=== PATIENT | female | born 1950 | race Caucasian/White ===

== ENCOUNTER 2018-08-16 10:02 | Inpatient (IN) | payer MEDICARE, OTHER ==
[~2018-08-16] VITALS: Ht 165.1 cm; Wt 115.7 kg
[~2018-08-16 10:02] MED LIST: ALEVE220 M1 PO; ASPIR 8181 MG PO; PRILOSEC10 MG PO
[2018-08-16] MEDS ORDERED: SODIUM CHLORIDE 0.9% 1000ML 1,000 ML IV STA (10:23)
[2018-08-16 10:43] LABS: BASOPHILS % 0.3 % (0.0-1.0); EOSINOPHILS # (AUTO) 0.2 (0.0-0.4); EOSINOPHILS % 2.7 % (0.0-6.0); HEMATOCRIT 47.6 % (34.2-44.1); LYMPHOCYTES # (AUTO) 0.5 (1.0-3.2); LYMPHOCYTES % 5.9 % (18.0-39.1); MEAN CORPUSCULAR HEMOGLOBIN 30.5 pg (28-32); MEAN CORPUSCULAR HGB CONC 31.5 g/dL (31-35); MEAN CORPUSCULAR VOLUME 96.7 fL (81-99); MONOCYTES # (AUTO) 0.4 (0.2-0.8); MONOCYTES % 4.7 % (4.4-11.3); NEUTROPHILS # (AUTO) 7.5 (2.1-6.9); NEUTROPHILS % 85.9 % (38.7-80.0); PLATELET COUNT 210 x10e3/uL (140-360); RED BLOOD COUNT 4.92 x10e6/uL (3.6-5.1); RED CELL DISTRIBUTION WIDTH 14.6 % (11.7-14.4)
[2018-08-16] MEDS ORDERED: ACETAMINOPHEN 1000 MG/100 ML 100 ML IV ONE (10:51)
[2018-08-16] MEDS ORDERED: ACETAMINOPHEN 1000 MG/100 ML IV STA (11:00)
--- NOTE | 2018-08-16 11:01 | NUR ---
Patient placed on BiPap at this time by RT.
[2018-08-16 11:05] LABS: INR 0.86; PARTIAL THROMBOPLASTIN TIME 30.3 seconds (23.8-35.5); PROTHROMBIN TIME 12.5 seconds (11.9-14.5)
[2018-08-16 11:12] LABS: ALANINE AMINOTRANSFERASE 12 IU/L (0-55); ALBUMIN 3.4 g/dL (3.5-5.0); ALBUMIN/GLOBULIN RATIO 0.8 (0.8-2.0); ALKALINE PHOSPHATASE 88 IU/L (40-150); ANION GAP 14.9 mmol/L (8-16); BLOOD UREA NITROGEN 12 mg/dL (7-26); BUN/CREATININE RATIO 14 (6-25); CALCIUM 9.7 mg/dL (8.4-10.2); CARBON DIOXIDE 27 mmol/L (22-29); CHLORIDE 103 mmol/L (98-107); CREATINE KINASE 95 IU/L (29-168); CREATININE, SERUM 0.87 mg/dL (0.57-1.11); EST GLOMERULAR FILTRATION RATE > 60 ML/MIN (60-); GLUCOSE 114 mg/dL (74-118); POTASSIUM 3.9 mmol/L (3.5-5.1); SODIUM 141 mmol/L (136-145)
[2018-08-16 11:18] LABS: BILIRUBIN,URINE NEGATIVE (NEGATIVE); CLARITY,URINE SL CLOUDY (CLEAR); COLOR,URINE YELLOW (YELLOW); KETONES,URINE NEGATIVE (NEGATIVE); LEUKOCYTE ESTERASE ,URINE NEGATIVE (NEGATIVE); NITRITE,URINE NEGATIVE (NEGATIVE); PROTEIN,URINE DIPSTICK NEGATIVE (NEGATIVE); URINE UROBILINOGEN 1 mg/dL (0.2 - 1)
--- NOTE | 2018-08-16 11:40 | Diagnostic Imaging Report ---
Examination: Single AP view of the chest. COMPARISON: None. INDICATION: Shortness of breath, sepsis DISCUSSION: The patient is rotated to the right. The lungs are well-inflated. No focal consolidation or sizable effusion. No pneumothorax. Mild enlargement of the cardiac silhouette even when accounting for AP technique, with perihilar prominence of the pulmonary interstitium. No acute osseous abnormality. IMPRESSION: Mild enlargement of the cardiac silhouette with interstitial edema. Signed by: Dr. Rubén Gandara M.D. on 08/16/2018 11:37 AM
[2018-08-16] MEDS ORDERED: ALBUTEROL/IPRATROPIUM 3 ML NEB NEB ONE (12:00)
[2018-08-16] MEDS ORDERED: METHYLPREDNISOLONE SOD SUCC 125 MG/2ML VIAL IV ONE (12:00)
[2018-08-16] MEDS ORDERED: KETOROLAC TROMETHAMINE 30 MG/ML VIAL IV STA (12:19)
[2018-08-16 12:29] LABS: BACTERIA,URINE FEW /HPF; EPITHELIAL CELLS,URINE FEW /LPF; RBC,URINE 0-5 /HPF (0-5)
[2018-08-16] MEDS ORDERED: CEFTRIAXONE SOD 1 GM VIAL IV SCH (12:30)
[2018-08-16] MEDS ORDERED: CEFTRIAXONE SOD 1 GM/NS 50 ML 50 ML IV ONE (12:56)
[2018-08-16] MEDS: CEFTRIAXONE SOD 1 GM/NS 50 ML 50 ML IV SCH (13:01)
--- NOTE | 2018-08-16 13:01 | NUR ---
Patient only received 2L of IV fluids per Dr. Bocanegra.
[2018-08-16] MEDS ORDERED: SODIUM CHLORIDE 0.9% 1000ML 1,000 ML IV SCH (14:33)
[2018-08-16] MEDS: ALBUTEROL SULF 0.083% NEB SOLN 3 ML NEB NEB SCH ×3 (14:45→23:55)
[2018-08-16] MEDS ORDERED: AZITHROMYCIN 500MG/SOD CHL 0.9% 250ML BAG IV SCH (14:45)
--- OUTSIDE RECORDS SUMMARY | 2018-08-16 15:09 | XMS REPORT ---
Author Author [facility] Address Unknown Phone Unavailable Care Team Providers Care Driving Instructor Name Role Phone Leatha CANO Unavailable Unavailable Problems This patient has no known problems. Allergies, Adverse Reactions, Alerts This patient has no known allergies or adverse reactions. Medications This patient has no known medications. Results Test Description Test Time Test Comments Text Results Atomic Results Result Comments CHEST SINGLE (PORTABLE) 2018-08-16 11:36:00 [place] [id number] Patient Name: CONSTANTINO TRIPP MR #: [id number] : 1950 Age/Sex: 68/F Req #: [id number] Adm Physician: Ordered by: JANES CANO MD Report #: [id number] Location: ER Room/Bed: Procedure: [id number] DX/CHEST SINGLE (PORTABLE) Exam Date: Exam Time: REPORT STATUS: Signed Examination: Single AP view of the chest. COMPARISON: Non e. INDICATION: Shortness of breath, sepsis DISCUSSION: The patient is rotated to the right. The lungs are well-inflated. No focal consolidation or sizable effusion. No pneumothorax. Mild enlargement of the cardiac silhouette even when accounting for AP technique, with perihilar prominence of the pulmonary interstitium. No acute osseous abnormality. IMPRESSION: Mild enlargement of the cardiac silhouette with interstitial edema. Signed by: Dr. Stephanie Gandara M.D. on 08/16/2018 11:37 AM Dictated By: STEPHANIE GANDARA MD 36 Transcribed By: JOHNNA on 08/16/181136 COPY TO: JANES CANO MD
[2018-08-16] MEDS ORDERED: IOPAMIDOL 370 MG/ML 200 ML INFUS..BTL INJ ONE (15:34)
[2018-08-16] MEDS ORDERED: SODIUM CHLORIDE 0.9% 50ML 50 ML ONE (15:34)
[2018-08-16] MEDS: AZITHROMYCIN 500MG/NS 250 ML 250 ML IV SCH (15:48)
--- NOTE | 2018-08-16 15:51 | NUR ---
Patient placed back on Bipap at this time due to shortness of breath. Will continue to closely monitor patient.
--- NOTE | 2018-08-16 15:54 | Diagnostic Imaging Report ---
EXAMINATION: CT of the chest with contrast, PE protocol. TECHNIQUE: Spiral CT images of the chest were performed from the lung apices through the level of the adrenal glands after the IV administration of 100 cc of Isovue-370. Thin section reconstructions were obtained with special concentration on the pulmonary arteries. COMPARISON: Chest radiograph same day. CLINICAL HISTORY:Shortness of breath DISCUSSION: Vasculature: The main pulmonary artery, right and left pulmonary arteries, and their visualized lobar and segmental branches are patent, without filling defect. The pulmonary outflow tract is of normal caliber. Evaluation of the lower lobe segmental pulmonary arteries is slightly limited secondary to respiratory motion artifact. There is no ectasia or aneurysmal dilatation of the thoracic aorta. Hoh coronary artery calcifications. Great vessel origins are normal in caliber and configuration. Lungs: Lower lobe predominant groundglass opacities, juxtapleural Elizabeth B lines, and smooth interlobular septal thickening. More confluent consolidations in the lingula and right lower lobe. Airways: Trachea, mainstem bronchi, and central lobar bronchi are patent Pleura: No pleural effusion or pneumothorax. Heart and mediastinum: Mediastinal and bilateral hilar lymphadenopathy, with the largest mediastinal lymph node at the right lower paratracheal station, measuring 1.6 cm short axis. No axillary lymphadenopathy. Abdomen: Visualized segments of the liver, spleen, adrenals, and pancreas are unremarkable. Calcified splenic granuloma. Bones and soft tissues: No osseous destructive lesions. No focal soft tissue abnormalities. IMPRESSION: No pulmonary embolus to the level of the segmental branch pulmonary arteries. Findings suggest multifocal pneumonia predominantly involving the lingula and right lower lobe, with background changes of interstitial pulmonary edema. Hilar and mediastinal lymphadenopathy is presumably reactive. Atherosclerotic vascular disease. Signed by: Dr. Ruébn Gandara M.D. on 08/16/2018 3:51 PM
[2018-08-16] MEDS: NICOTINE 21 MG/EA PATCH TOP SCH (16:30)
--- NOTE | 2018-08-16 16:38 | NUR ---
Patient breathing rapidly on BiPap and states she does not want to have ABG done. MD notified.
[2018-08-16] MEDS ORDERED: FUROSEMIDE INJ 10 MG/ML 2 ML VIAL IV ONE (16:45)
--- NOTE | 2018-08-16 16:54 | NUR ---
Patient agreed to have ABG performed at this time. RT notified.
[2018-08-16 17:20] LABS: ABG HCO3 26 mmol/L (23-28); ABG PCO2 49 mmHg (41-51); ABG PH 7.33 (7.31-7.41); ABG PO2 83 mmHg (80-105)
[2018-08-16] MEDS: IBUPROFEN 400 MG TAB PO PRN (18:34)
--- NOTE | 2018-08-16 18:36 | NUR ---
Dr. Weston paged at this time. Awaiting call back.
--- NOTE | 2018-08-16 18:41 | History and Physical ---
HISTORY OF PRESENT ILLNESS: A 68-year-old female with past medical history positive for osteoarthritis. According to the patient, she is a heavy smoker also. She came to the hospital complaining of very acute shortness of breath, cough, phlegm and fever. She was found to have bilateral lower pneumonia and acute congestive heart failure and COPD exacerbation . REVIEW OF SYSTEMS: CARDIOVASCULAR: No chest pain, no palpitation. RESPIRATORY: She did complain of shortness of breath and cough and fever. GASTROINTESTINAL: No nausea, no vomiting, no diarrhea. GENITOURINARY: No frequency, no dysuria. ALLERGIES: SHE IS ALLERGIC TO CODEINE. SOCIAL HISTORY: She still smokes. She is a heavy smoker. She does not drink alcohol. PAST MEDICAL HISTORY: She claims that she only has osteoarthritis. PHYSICAL EXAMINATION: HEART: Shows regular rhythm. Normal S1 and S2 sounds. LUNGS: Show decreased breath sounds bilaterally. ABDOMEN: Soft. EXTREMITIES: Show no evidence of cyanosis, edema or trauma. Chest CT showed bilateral pneumonia and also congestive heart failure. On the BMP: Sodium 141, potassium 3.9, chloride 103, CO2 27, BUN 12, creatinine 0.7, glucose 114. On the CBC: White blood count 8.67, hemoglobin 15.0, hematocrit 47.6, platelet count 210,000. PT 12.5, INR 0.86, PTT 30.3. AST 18, ALT 12, total bilirubin 0.5, alkaline phosphatase 88. FINAL IMPRESSION: 1. Multilobar pneumonia. 2. Acute congestive heart failure. 3. Chronic obstructive pulmonary disease exacerbation. 4. Acute hypoxemic respiratory failure, which is resolving with breathing treatments and oxygen. PLAN OF TREATMENT: Continue albuterol q.4 hours, Atrovent q.6 hours. Ceftriaxone 1 gram IV once a day. Zithromax 250 mg IV once a day. IV fluids have been discontinued because of the congestive heart failure. We started the patient on Lasix 40 mg IV daily. Solu-Medrol 40 mg IV q.8 hours. Potassium chloride 20 mEq daily. We are going to get the following consults: Dr. Fowler for pulmonary and Dr. Alex for cardiology. An echocardiogram has been ordered. Actually, the primary care is Dr. Lopez Ross; so, we are going to switch the consult to him for pulmonary. Time spent around 45 minutes. Discussed with the family and the ER physician. Job#: [id number] EV
[2018-08-16] MEDS ORDERED: NAPROXEN250 MG PO (18:45)
[2018-08-16] MEDS: IPRATROPIUM BROMIDE 0.02% 2.5 ML NEB NEB SCH ×2 (19:00→23:55)
--- NOTE | 2018-08-16 19:00 | NUR ---
Walking rounds with BANDAR Ibrahim. Patient in no distress at this time.
[2018-08-16 19:13] LABS: CREATINE KINASE MB 3.1 ng/mL (0-5.0)
--- NOTE | 2018-08-16 21:45 | NUR ---
PATIENT CAME FROM ER AWAKE ALERT ORIENTED, ON O2 4 LT NASAL CANULA, SHORTNESS OF BREATHS WITH EXERTION. NO SKIN BREAKDOWN NOTED, PATIENT ABLE TO STAND UP AND SITTING DOWN WITH HELP. CHANGED GOWN AND SITUATED PATIENT IN BED. WILL CONTINUE TO MONITOR.
[2018-08-16 22:55] VITALS: BP 130/62
[2018-08-16] MEDS: METHYLPREDNISOLONE SOD SUCC 40 MG/ML VIAL IV SCH (22:55)
--- NOTE | 2018-08-16 23:31 | NUR ---
CALLED AND SPOKE WITH DR YEUNG, PER PATIENT SHE HAS NOT BEEN SLEEPING SINCE WEDNESDAY, SHE ASKED FOR SOMETHING TO SLEEP. THE MD GAVE AND ORDER AND ITS CARRIED OUT.
[2018-08-16] MEDS: ZOLPIDEM TARTRATE 5 MG TAB PO PRN (23:49)
[2018-08-17] VITALS (8 sets, daily range): BP systolic 115–147; BP diastolic 58–82
--- NOTE | 2018-08-17 00:17 | NUR ---
PATIENT ONLY WANTED TO TAKE 5 MG AMBIEN, (PRESCRIBED 10 MG, 2 PILLS). WASTED 5 MG AMBIEN WITNESSED BY BEKAH ROE RN. PATIENT IS SLEEPING WITH BIPAP NOW, WILL CONTINUE TO MONITOR.
--- NOTE | 2018-08-17 01:52 | NUR ---
BLOOD DROWN AND SENT TO LAB FOR CARDIAC MARKER.
--- NOTE | 2018-08-17 02:09 | NUR ---
CHECKED PATIENT IS IN BED RESTING, CLOSED EYES, BIPAP IS ON, NO DISTRESS NOTED. BED ALARM IS ON, WILL CONTINUE TO MONITOR.
[2018-08-17 02:31] LABS: CREATINE KINASE MB 3.2 ng/mL (0-5.0)
[2018-08-17] MEDS: ALBUTEROL SULF 0.083% NEB SOLN 3 ML NEB NEB SCH ×6 (03:45→22:30)
--- NOTE | 2018-08-17 05:25 | NUR ---
CALLED AND SPOKE WITH DR HERNANDEZ, MADE HIM AWARE THAT PATIENT IS CONSULTED TO HIM.
--- NOTE | 2018-08-17 05:36 | Diagnostic Imaging Report ---
CHEST SINGLE (PORTABLE), 08/17/2018 5:00 AM Technique: CHEST SINGLE (PORTABLE) Comparison: 08/16/2018 Clinical history: Pneumonia Findings: See Impression Impression: Severely limited by portable technique and soft tissue attenuation. 1. Stable enlarged cardiomediastinal silhouette. 2. Patchy bilateral opacities in keeping with reported pneumonia. Signed by: Dr Lacy Stephens MD on 08/17/2018 5:33 AM
[2018-08-17] MEDS: METHYLPREDNISOLONE SOD SUCC 40 MG/ML VIAL IV SCH ×3 (05:45→21:50)
[2018-08-17] MEDS: PANTOPRAZOLE SOD 40 MG TABEC PO SCH (07:30)
[2018-08-17] MEDS: IPRATROPIUM BROMIDE 0.02% 2.5 ML NEB NEB SCH ×3 (07:50→19:53)
[2018-08-17 08:39] LABS: ANION GAP 14.7 mmol/L (8-16); BLOOD UREA NITROGEN 16 mg/dL (7-26); BUN/CREATININE RATIO 17 (6-25); CARBON DIOXIDE 28 mmol/L (22-29); CHLORIDE 102 mmol/L (98-107); CREATININE, SERUM 0.92 mg/dL (0.57-1.11); EST GLOMERULAR FILTRATION RATE > 60 ML/MIN (60-); GLUCOSE 130 mg/dL (74-118); POTASSIUM 4.7 mmol/L (3.5-5.1); SODIUM 140 mmol/L (136-145)
[2018-08-17 08:59] LABS: CREATINE KINASE MB 2.9 ng/mL (0-5.0)
[2018-08-17] MEDS ORDERED: OMEPRAZOLE 10 MG PO SCH (09:00)
[2018-08-17] MEDS: POTASSIUM CHLORIDE 20 MEQ TAB CR PO SCH (09:20)
[2018-08-17] MEDS: FUROSEMIDE INJ 10 MG/ML 4 ML VIAL IV SCH (09:20)
[2018-08-17] MEDS: ASPIRIN 81 MG CHEW TAB PO SCH (09:20)
--- NOTE | 2018-08-17 09:51 | Consultation ---
DATE OF CONSULTATION: August 17, 2018 PULMONARY CRITICAL CARE CONSULTATION HISTORY OF PRESENT ILLNESS: The patient is a 68-year-old woman. She has a history of chronic degenerative arthritis in her back. She has had some nerve ablations previously with limited success. She was on pain medicine briefly, but is now only on tramadol and nonsteroidal antiinflammatory drugs. The patient complains of increasing dyspnea over 2 days. She notes pain on the right side of her chest with inspiration. She also reports some fevers at home. She has a nonproductive cough. She came to the emergency department. She received oxygen which helped. She then received BiPAP, which helped as well. Her CT scan showed multifocal pneumonia. She was started on antibiotics. PAST SURGICAL HISTORY: Status post ablation of nerves for chronic back pain. PAST MEDICAL HISTORY 1. Severe degenerative arthritis of the lumbosacral spine. 2. History of a cardiac evaluation about 4 years ago. She had a stress test and an ultrasound in the office that were negative. 3. History of a pulmonary evaluation about 4 years ago that included some pulmonary function tests. SOCIAL HISTORY: The patient just recently quit smoking. She is not a drinker. ALLERGIES: SHE IS ALLERGIC TO CODEINE. REVIEW OF SYSTEMS: Possible fevers. No headache. She is not having any neck pain. She has no chest pain. She has no phlegm production. She does note some nonproductive cough and some dyspnea. She does not complain of abdominal pain. She has no nausea or vomiting. She does not have any leg edema. She does report difficulty sleeping. She wakes up frequently during the night and uses a fan at night. PHYSICAL EXAMINATION VITALS: The patient is afebrile. The blood pressure is 128/71 and the pulse is 74. The saturation is 99%. She is on nasal cannula at 4 L. HEENT: Shows no facial swelling or erythema. The oral mucosa is normal. LYMPHATIC: Shows no submandibular, cervical or supraclavicular adenopathy. CARDIAC: Reveals a regular rate and rhythm with normal S1 and S2. There are no murmurs or rubs. LUNGS: Auscultation of the lungs reveals a few crackles at the bases. There are decreased breath sounds. ABDOMEN: Soft and nontender. There is no rebound or guarding. EXTREMITIES: Shows no leg edema or calf tenderness. There is no cyanosis or clubbing. SKIN: Shows no rashes. LABORATORY DATA: White blood cell count is 8.6 with hemoglobin of 15 and the platelet count of 210,000. The BUN to creatinine ratio is within normal limits. The electrolytes are normal. The albumin is normal. Blood gas shows a pH of 7.33 with a CO2 of 49 and O2 of 83. IMPRESSION 1. Multifocal community-acquired pneumonia with sepsis present on admission. 2. Possible chronic obstructive pulmonary disease. 3. Possible obstructive sleep apnea. 4. Possible cardiac disease. 5. Degenerative arthritis of the lumbosacral spine. PLAN 1. The patient will continue on antibiotics for community-acquired pneumonia. 2. Smoking cessation with NicoDerm patch. 3. Solu-Medrol 1 mg/kg daily. 4. Complete cardiac evaluation. Job#: [id number] MAYELIN
--- NOTE | 2018-08-17 11:50 | Progress Note ---
DATE: August 17, 2018 INTERNAL MEDICINE PROGRESS NOTE SUBJECTIVE: Patient is doing better. PHYSICAL EXAMINATION HEART: Regular rhythm. Normal S1 and S2 sounds. LUNGS: Crackles in both lower parts of both lungs. ABDOMEN: Soft. EXTREMITIES: No evidence of cyanosis, edema or trauma. VITALS: Blood pressure 128/71. Temperature 97.8. Heart rate 74 per minute, respiratory 22 per minute, oxygen saturation 99%. LABS: On the BMP, sodium 140, potassium 4.7, chloride 102, CO2 28, BUN 16, creatinine 0.82. Glucose 130. On the CBC, white blood count 8.67; hemoglobin 15.0; hematocrit 47.6; platelet count 220,000. PT 12.5, INR 0.86, PTT 30.3. AST 18, ALT 12, total bilirubin 0.5, alkaline phosphatase 88. FINAL IMPRESSION 1. Multilobar pneumonia. 2. Acute systolic congestive heart failure. 3. Chronic obstructive pulmonary disease exacerbation. 4. Insomnia. 5. Acute hypoxemic respiratory failure. PLAN OF TREATMENT: Continue with albuterol q.4 h., Atrovent q.6 h., ceftriaxone 2 grams IV daily, Zithromax 250 mg IV once a day, Protonix 40 mg daily, Ambien 10 mg at night p.r.n. for sleep, NicoDerm patch 21 mg daily, furosemide 40 mg IV daily, methylprednisolone IV 40 mg IV q.8 h., aspirin 81 mg daily, potassium chloride 20 mEq daily, ibuprofen 400 mg 3 times a day. The case was discussed with the patient. Time spent 45 minutes. Job#: [id number]
[2018-08-17] MEDS ORDERED: SODIUM CHLORIDE 0.9% 250ML 250 ML ONE (12:46)
[2018-08-17] MEDS: CEFTRIAXONE SOD 1 GM/NS 50 ML 50 ML IV SCH (12:57)
[2018-08-17] MEDS: AZITHROMYCIN 500MG/NS 250 ML 250 ML IV SCH (14:54)
[2018-08-17] MEDS: NICOTINE 21 MG/EA PATCH TOP SCH (14:56)
--- NOTE | 2018-08-17 16:58 | Consultation ---
DATE OF CONSULTATION: August 17, 2018 CARDIOLOGY CONSULTATION REASON FOR CONSULTATION: Congestive heart failure. HISTORY OF PRESENT ILLNESS: This is a 68-year-old woman with a history of tobacco use and chronic obstructive pulmonary disease, who presented to the emergency department with progressive worsening shortness of breath with cough. She denies any chest pain, palpitations or syncopal events. She has ongoing smoking in the form of tobacco cigarettes. She was found to have pneumonia with a chest x-ray showing an enlarged cardiomediastinal silhouette. She was placed on antibiotics, bronchodilators and Lasix. She is currently feeling better. Denies any ongoing symptoms. The patient states that she has had a stress test in the past, which was within normal limits. REVIEW OF SYSTEMS: A 12-point review of systems was conducted, and is negative otherwise in the HPI. PAST MEDICAL HISTORY: Tobacco use, chronic obstructive pulmonary disease, obesity. PAST SURGICAL HISTORY: None recent. FAMILY HISTORY: No premature coronary artery disease or sudden cardiac . SOCIAL HISTORY: Current tobacco use. No illicit drug use or alcohol use. ALLERGIES: CODEINE. MEDICATIONS: See medication reconciliation form. PHYSICAL EXAMINATION VITAL SIGNS: Temperature is 98.5, heart rate is 93, respirations are 18, blood pressure is 146/71, oxygen saturation is 96% on 3 L nasal cannula. GENERAL: She is an obese woman in no apparent distress. CARDIOVASCULAR: Regular rate and rhythm. No murmurs appreciated. LUNGS: Scattered wheezes with scattered rhonchi throughout lung ponce. Decreased breath sounds in bilateral bases. ABDOMEN: Soft and nontender. EXTREMITIES: Trace edema. VASCULAR: Two plus pulses. NEUROLOGIC: No focal deficits noted. LABORATORY DATA: Reviewed. Negative cardiac enzymes times 3. BNP is 138. Chest x-ray shows mild cardiomegaly with patchy bilateral opacities. CT of the chest shows no pulmonary embolism, multifocal pneumonia with mild interstitial edema. A 2-D echocardiogram showed left ventricular ejection fraction of 50% to 55% with grade 1 diastolic dysfunction. IMPRESSION 1. Multilobar pneumonia. 2. Nvjav-ta-vaoapan diastolic heart failure. 3. Chronic obstructive pulmonary disease exacerbation. RECOMMENDATIONS: The patient ruled out for acute coronary syndrome. Her overall left ventricular function is preserved. Reasonable to continue intravenous Lasix for 1 more day. Continue antibiotic therapy and COPD treatment per primary teams. No further cardiac testing is required inpatient. Patient will follow up as an outpatient for possible stress testing. Job#: [id number] RI
[2018-08-17] MEDS: IBUPROFEN 400 MG TAB PO PRN (17:55)
[2018-08-17] MEDS: ZOLPIDEM TARTRATE 5 MG TAB PO PRN (21:51)
--- NOTE | 2018-08-17 21:51 | NUR ---
patient wants Ambien only 5 mg instead of as prescribed 10 mg.
[2018-08-18] VITALS (8 sets, daily range): BP systolic 130–155; BP diastolic 52–88
--- NOTE | 2018-08-18 01:13 | NUR ---
Received report from nurse. Walking rounds completed.
[2018-08-18] MEDS: IPRATROPIUM BROMIDE 0.02% 2.5 ML NEB NEB SCH ×4 (02:30→19:25)
[2018-08-18] MEDS: ALBUTEROL SULF 0.083% NEB SOLN 3 ML NEB NEB SCH ×6 (02:30→22:45)
--- NOTE | 2018-08-18 05:06 | NUR ---
Patient resting quitly at this time. Bipap on and intact. Patient in no distress. Continue monitor.
[2018-08-18] MEDS: METHYLPREDNISOLONE SOD SUCC 40 MG/ML VIAL IV SCH ×3 (05:30→22:31)
[2018-08-18] MEDS: FUROSEMIDE INJ 10 MG/ML 4 ML VIAL IV SCH (08:38)
[2018-08-18] MEDS: PANTOPRAZOLE SOD 40 MG TABEC PO SCH (08:38)
[2018-08-18] MEDS: ASPIRIN 81 MG CHEW TAB PO SCH (08:38)
[2018-08-18] MEDS: POTASSIUM CHLORIDE 20 MEQ TAB CR PO SCH (08:38)
--- NOTE | 2018-08-18 08:39 | NUR ---
Patient non-compliant with dietary guidelines orders, she has her food brought in from the outside. Reports she does not like the hospital's menu or the taste this hospital's food.
[2018-08-18] MEDS: CEFTRIAXONE SOD 1 GM/NS 50 ML 50 ML IV SCH (13:09)
--- NOTE | 2018-08-18 13:58 | NUR ---
CM SPOKE TO DR. YEUNG REGARDING HOME HEALTH AND HOME OXYGEN SET UP. PATIENT IS SET UP WITH HOME HEALTH: [facility] Address: [address], [place] [address] HOME OXYGEN/ NON-INVASIVE VENTILATOR SET UP WITH: [employer] Address: [address], [place] [address] LIAISON JOSIE [phone] PATIENT AWARE AND ASKED IF THEY WOULD HAVE LIKED ANY OTHER COMPANIES. PATIENT LOOKED OVER CHOICES BUT SAID TO GO WITH MD REQUESTS. CHOICE SIGNED AND PLACED IN CHART. CLINICAL SENT AND PENDING ACCEPTANCE.
--- NOTE | 2018-08-18 14:18 | Discharge Summary ---
HISTORY OF PRESENT ILLNESS: Patient is a 68-year-old female with past medical history mainly positive for hypertension and COPD, came here with shortness of breath. She was found to have acute congestive heart failure and also bilateral pneumonia, started on IV Zithromax and IV Rocephin. She was started also on IV Lasix. She is doing a lot better right now. Cardiology saw her from the cardiology point of view. Echocardiogram has been ordered. The report is pending. Patient is going to be going home tomorrow. She has low oxygen while walking. The ox saturation drops to the 80s when she is walking. We are going to do an evaluation for the oxygen at resting and walking and then write oxygen at home which she has to take permanently. Also, BiPAP machine will be ordered by pulmonology, Dr. Ross, which is on the case and also we are going to order standard wheelchair. Patient is going to go home tomorrow if okay with consultants. PHYSICAL EXAM HEART: Shows regular rhythm. Normal S1, S2 sounds. LUNGS: Clear bilaterally. ABDOMEN: Soft. EXTREMITIES: Show no evidence of cyanosis, edema, or trauma. FINAL IMPRESSION 1. Acute congestive heart failure, more likely systolic. 2. Bilateral pneumonia. 3. Chronic obstructive pulmonary disease exacerbation. 4. Hypoxemia secondary to chronic obstructive pulmonary disease exacerbation. PLAN OF TREATMENT: She is going to go home on ProAir 2 puffs every 4 hours as needed for shortness of breath, Spiriva 1 inhalation daily, Medrol Dosepak to take as directed, Lasix 40 mg daily, potassium 20 mEq daily, Ceftin 500 mg twice a day, and Zithromax 250 mg daily for a total of 8 days. Patient is going to follow up with myself and Dr. Lopez Ross, attractions associate, as an outpatient, also Dr. Alex, cardiology patient to go home. The patient is going to follow up with him. We are going to order home health also. HONG YEUNG MD Job#: [id number] JASPAL
--- NOTE | 2018-08-18 15:27 | NUR ---
CALLED AND SPOKE WITH MILAGROS AT [employer] FAXED FACESHEET AND ORDER FOR LIGHT WEIGHT WHEELCHAIR TO [phone]
[2018-08-18] MEDS: NICOTINE 21 MG/EA PATCH TOP SCH (16:00)
[2018-08-18] MEDS: AZITHROMYCIN 500MG/NS 250 ML 250 ML IV SCH (16:01)
--- NOTE | 2018-08-18 16:46 | Progress Note ---
DATE: August 18, 2018 CARDIOLOGY PROGRESS NOTE SUBJECTIVE: Patient feels better, receiving breathing treatment. Shortness of breath improved. No chest pain. OBJECTIVE VITAL SIGNS: Temperature 97.8, heart rate is 82, respirations are 20, blood pressure is 155/88, oxygen saturation is 99% on 3 L cannula. GENERAL: Well-appearing no apparent distress. LUNGS: Scattered wheezes. CARDIOVASCULAR: Regular rate and rhythm. ABDOMEN: Soft, nontender. EXTREMITIES: Edema. LABORATORY DATA: Reviewed. TELEMETRY MONITORING: Revealed normal sinus rhythm. IMPRESSIONS 1. Ywjia-wp-asqwcjv diastolic heart failure. 2. Chronic obstructive pulmonary disease exacerbation. 3. Multilobar pneumonia. 4. Hypertension. RECOMMENDATIONS: Patient has a preserved left ventricular systolic function. Continue Lasix. Antibiotic therapy and COPD treatment per primary team. Will start amlodipine for blood pressure control. Patient may follow up as an outpatient for possible stress testing. Job#: [id number]
[2018-08-18] MEDS: IBUPROFEN 400 MG TAB PO PRN (21:03)
[2018-08-18] MEDS: ZOLPIDEM TARTRATE 5 MG TAB PO PRN (21:03)
--- NOTE | 2018-08-18 21:53 | NUR ---
Dr. Trista crawford, spoke with Marya.
--- NOTE | 2018-08-18 23:24 | NUR ---
RECEIVED PATIENT TO UNIT, DAUGHTER AT BEDSIDE. ASSISTED PATIENT TO RESTROOM, AND BACK INTO BED. BED LOCKED, AND IN LOWEST POSITION, CALL LIGHT WITHIN EASY REACH. BED ALARM ACTIVATED. ENCOURAGED PATIENT TO CALL FOR HELP, VERBALIZED UNDERSTANDING. NO NEEDS AT THIS TIME. WILL CONTINUE TO MONITOR THE PATIENT CLOSELY.
--- NOTE | 2018-08-18 23:45 | NUR ---
Patient endorsed to lawrence Littlejohn and transferred to room 213.
[2018-08-19] VITALS: BP 164/73
[2018-08-19] MEDS: TELMISARTAN 40 MG TAB PO SCH ×2 (00:18→09:51)
--- NOTE | 2018-08-19 00:52 | NUR ---
Signed off medications for lawrence Calvo. nicotine and micardis medications before transferring patient
[2018-08-19] MEDS: IPRATROPIUM BROMIDE 0.02% 2.5 ML NEB NEB SCH ×2 (02:45→07:40)
[2018-08-19] MEDS: ALBUTEROL SULF 0.083% NEB SOLN 3 ML NEB NEB SCH ×3 (02:45→10:43)
[2018-08-19 04:00] VITALS: BP 130/71
--- NOTE | 2018-08-19 06:02 | NUR ---
kitchen notified RN that patient does not want kitchen food, so no tray will be delivered.
[2018-08-19] MEDS: METHYLPREDNISOLONE SOD SUCC 40 MG/ML VIAL IV SCH (06:43)
[2018-08-19 08:00] VITALS: BP 136/65
[2018-08-19 09:10] VITALS: BP 130/71
--- NOTE | 2018-08-19 09:24 | Progress Note ---
DATE: August 19, [address] Weston. SUBJECTIVE: Ms. Miranda is a 68-year-old female, positive smoker of half pack a day, came to the emergency room complaining of shortness of breath, cough and phlegm, and fever. She was found to have COPD exacerbation and bilateral pneumonia, started on neb treatments, IV antibiotics, IV steroids. She did much better and the plan is to discharge her home today. PHYSICAL EXAMINATION: GENERAL: She is awake and alert. VITAL SIGNS: Temperature is 96.3, blood pressure is 130/71. HEART: Regular rate. LUNGS: Clear to auscultation. ABDOMEN: Soft. BLOOD WORK: Potassium 4.7, creatinine is 0.92, glucose is 130. White count 8.67, hemoglobin 15, hematocrit is 47.6. ASSESSMENT: 1. Chronic obstructive pulmonary disease exacerbation. 2. Multilobar pneumonia. 3. Ebhzu-lj-naoqrsn diastolic congestive heart failure. 4. Acute hypoxic respiratory failure. 5. Tobacco user. PLAN: At present time with this patient is Dr. Weston discharged her home yesterday. We are awaiting for the oxygen at home. She is going to need home health. She also has to follow up with ampoule washing machine operator and customer support analyst. She was discharged on ProAir, Spiriva, potassium 20 mEq daily, Ambien 10 mg at bedtime, Medrol Dosepak, Lasix 40 mg daily, azithromycin, and Ceftin for 8 days. She needs follow up with Dr. Weston next week. All this was discussed with patient and family member at bedside. All questions were answered to satisfaction. Job#: [id number]
[2018-08-19] MEDS: FUROSEMIDE INJ 10 MG/ML 4 ML VIAL IV SCH (09:50)
[2018-08-19] MEDS: PANTOPRAZOLE SOD 40 MG TABEC PO SCH (09:50)
[2018-08-19] MEDS: ASPIRIN 81 MG CHEW TAB PO SCH (09:50)
[2018-08-19] MEDS: POTASSIUM CHLORIDE 20 MEQ TAB CR PO SCH (09:50)
[2018-08-19 12:00] VITALS: BP 134/59
--- NOTE | 2018-08-19 12:38 | NUR ---
IMM letter delivered and explained to pt. She verbalized understanding. Signed copy placed in chart. Copy to pt. Portable oxygen concentrator from [facility] has been delivered and is at bedside. Home set up is currently being delivered now, per pt. CM called and spoke with Wing at [facility] and informed him that pt is discharging today. He will call pt and set up a time for nursing to see her tomorrow HOME HEALTH: [facility]. Address: [address], [place] [address] HOME OXYGEN: [facility] Address: [address], [place] [address] information printed and given to pt.
--- NOTE | 2018-08-19 13:58 | NUR ---
PT DISCHARGED WITH PRESCRIPTIONS AND HOME HEALTH SERVICES WITH [facility]. WRITTEN INSTRUCTIONS GIVEN. IV SITE LOOKS CLEAN AND DRY. NO RESP DISTRESS NOTED. TRANSPORTED VIA W/C TO [employer] BY FAMILY.
== END 2018-08-19 13:03 | disposition home health service (06) | DRG 291 ==
LOC: ER 10:02 → ERHOLD 14:46 → IMCU 21:30 → MED/SURG2 08-18 23:07
PROVIDERS: ADMIT Internal Medicine; ATTEND Internal Medicine
DX: I11.0 Hypertensive heart disease with heart failure (principal); J96.21 Acute and chronic respiratory failure with hypoxia; J18.1 Lobar pneumonia, unspecified organism; J44.1 Chronic obstructive pulmonary disease with (acute) exacerbation; J44.0 Chronic obstructive pulmonary disease with (acute) lower respiratory infection; I50.23 Acute on chronic systolic (congestive) heart failure; G47.33 Obstructive sleep apnea (adult) (pediatric); M47.897 Other spondylosis, lumbosacral region; G47.00 Insomnia, unspecified; F17.210 Nicotine dependence, cigarettes, uncomplicated
CPT/HCPCS: 36415; 36600; 51700; 71045; 71260; 80048; 80053; 81001; 82550; 82553; 82805; 83605; 83880; 84484; 85025; 85610; 85730; 87040; 87086; 87186; 87400; 87449; 93005; 93306; 94640; 94660; 96360; 99284; J0456; J0696; J1885; J1940; J2920; J2930; J7030; J7050; Q9967

== ENCOUNTER 2020-08-12 11:02 | Inpatient (IN) | payer MEDICARE, OTHER ==
[~2020-08-12] VITALS: Ht 165.1 cm; Wt 133.4 kg
[~2020-08-12 11:02] MED LIST changes: +NAPROXEN250 MG PO
[2020-08-12 12:18] LABS: BASOPHILS # (AUTO) 0.1 (0.0-0.1); BASOPHILS % 0.9 % (0.0-1.0); EOSINOPHILS # (AUTO) 0.2 (0.0-0.4); EOSINOPHILS % 2.5 % (0.0-6.0); HEMATOCRIT 45.9 % (34.2-44.1); HEMOGLOBIN 13.3 g/dL (12.0-16.0); LYMPHOCYTES # (AUTO) 1.5 (1.0-3.2); LYMPHOCYTES % 18.8 % (18.0-39.1); MEAN CORPUSCULAR HEMOGLOBIN 28.2 pg (28-32); MEAN CORPUSCULAR VOLUME 97.2 fL (81-99); MONOCYTES # (AUTO) 0.7 (0.2-0.8); MONOCYTES % 9.3 % (4.4-11.3); NEUTROPHILS # (AUTO) 5.4 (2.1-6.9); NEUTROPHILS % 68.1 % (38.7-80.0); PLATELET COUNT 279 x10e3/uL (140-360); RED BLOOD COUNT 4.72 x10e6/uL (3.6-5.1); RED CELL DISTRIBUTION WIDTH 15.8 % (11.7-14.4)
[2020-08-12 12:29] LABS: INR 1.03
[2020-08-12 12:30] LABS: PARTIAL THROMBOPLASTIN TIME 27.4 seconds (23.8-35.5)
[2020-08-12 12:41] LABS: ALBUMIN 3.3 g/dL (3.5-5.0); ALBUMIN/GLOBULIN RATIO 0.9 (0.8-2.0); ANION GAP 15.5 mmol/L (8-16); CALCIUM 8.7 mg/dL (8.4-10.2); CREATININE, SERUM 1.58 mg/dL (0.57-1.11); MAGNESIUM 2.1 MG/DL (1.3-2.1); POTASSIUM 4.5 mmol/L (3.5-5.1)
[2020-08-12 13:12] LABS: CREATINE KINASE MB 1.4 ng/mL (0-5.0); THYROID STIMULATING HORMONE 3.264 uIU/mL (0.350-4.940)
[2020-08-12] MEDS ORDERED: FUROSEMIDE INJ 10 MG/ML 4 ML VIAL IV ONE (13:30)
[2020-08-12] MEDS ORDERED: ONDANSETRON HCL INJ 2MG/ML 2ML 2 MG/ML VIAL IV PRN (13:30)
[2020-08-12] MEDS ORDERED: PREGABALIN50 MG (14:13)
[2020-08-12] MEDS ORDERED: MELOXICAM7.5 MG (14:13)
[2020-08-12] MEDS ORDERED: ULTRAM 50MG50 MG (14:13)
[2020-08-12] MEDS ORDERED: CYCLOBENZAPRINE10 MG (14:13)
[2020-08-12 14:26] LABS: CLARITY,URINE CLOUDY (CLEAR); COLOR,URINE YELLOW (YELLOW); LEUKOCYTE ESTERASE ,URINE TRACE (NEGATIVE); NITRITE,URINE POSITIVE (NEGATIVE); PROTEIN,URINE DIPSTICK 2+ (NEGATIVE)
[2020-08-12 14:27] LABS: KETONES,URINE NEGATIVE (NEGATIVE)
[2020-08-12 14:50] LABS: BACTERIA,URINE MODERATE /HPF; EPITHELIAL CELLS,URINE MODERATE /LPF; RBC,URINE 0-5 /HPF (0-5)
[2020-08-12] MEDS ORDERED: POLYETHYLENE GLYCOL 3350 17 GM PACK PO PRN (15:45)
[2020-08-12] MEDS ORDERED: ACETAMINOPHEN 325 MG TAB PO PRN (15:45)
[2020-08-12] MEDS ORDERED: TEMAZEPAM 7.5 MG CAP PO PRN (15:45)
[2020-08-12] MEDS ORDERED: HYDRALAZINE HCL 20 MG/ML VIAL IV PRN (15:45)
[2020-08-12] MEDS: CEFTRIAXONE SOD 1 GM 50 ML IV SCH (16:35)
[2020-08-12] MEDS ORDERED: CEFTRIAXONE SOD 1 GM VIAL ONE ×2 (16:42→16:51)
[2020-08-12] MEDS: DOCUSATE SODIUM 100 MG CAP PO SCH (16:47)
[2020-08-12] MEDS: FAMOTIDINE 20 MG TAB PO SCH (16:47)
[2020-08-12] MEDS ORDERED: FUROSEMIDE 20 MG TAB PO SCH (18:00)
[2020-08-12 19:41] LABS: CREATINE KINASE MB 1.6 ng/mL (0-5.0)
[2020-08-12 19:58] VITALS: BP 104/79
[2020-08-12 20:32] VITALS: BP 104/79
[2020-08-12] MEDS ORDERED: CYCLOBENZAPRINE5 MG PO (20:48)
[2020-08-12] MEDS ORDERED: NAPROXEN250 MG PO (20:48)
[2020-08-12 21:00] VITALS: BP 104/79
[2020-08-12] MEDS ORDERED: TEMAZEPAM 15 MG CAP PO PRN (21:00)
[2020-08-12] MEDS ORDERED: SODIUM CHLORIDE 0.9% 250ML 250 ML ONE (22:32)
[2020-08-12 23:53] VITALS: BP 116/56
[2020-08-13] VITALS (7 sets, daily range): BP systolic 99–130; BP diastolic 45–97
[2020-08-13 01:24] LABS: CREATINE KINASE MB 1.6 ng/mL (0-5.0)
[2020-08-13 05:14] LABS: BASOPHILS % 0.6 % (0.0-1.0); EOSINOPHILS # (AUTO) 0.4 (0.0-0.4); EOSINOPHILS % 5.2 % (0.0-6.0); HEMATOCRIT 46.1 % (34.2-44.1); HEMOGLOBIN 13.4 g/dL (12.0-16.0); LYMPHOCYTES # (AUTO) 0.7 (1.0-3.2); LYMPHOCYTES % 10.2 % (18.0-39.1); MEAN CORPUSCULAR HEMOGLOBIN 28.7 pg (28-32); MEAN CORPUSCULAR HGB CONC 29.1 g/dL (31-35); MEAN CORPUSCULAR VOLUME 98.7 fL (81-99); MONOCYTES # (AUTO) 0.5 (0.2-0.8); MONOCYTES % 6.7 % (4.4-11.3); NEUTROPHILS # (AUTO) 5.4 (2.1-6.9); NEUTROPHILS % 76.9 % (38.7-80.0); PLATELET COUNT 235 x10e3/uL (140-360); RED BLOOD COUNT 4.67 x10e6/uL (3.6-5.1); RED CELL DISTRIBUTION WIDTH 15.9 % (11.7-14.4)
[2020-08-13 05:34] LABS: ALANINE AMINOTRANSFERASE 20 IU/L (0-55); ALBUMIN/GLOBULIN RATIO 0.8 (0.8-2.0); ALKALINE PHOSPHATASE 77 IU/L (40-150); ANION GAP 14.7 mmol/L (8-16); BLOOD UREA NITROGEN 26 mg/dL (7-26); BUN/CREATININE RATIO 32 (6-25); CALCIUM 8.6 mg/dL (8.4-10.2); CARBON DIOXIDE 29 mmol/L (22-29); CHLORIDE 102 mmol/L (98-107); CREATININE, SERUM 0.81 mg/dL (0.57-1.11); EST GLOMERULAR FILTRATION RATE > 60 ML/MIN (60-); GLUCOSE 116 mg/dL (74-118); POTASSIUM 4.7 mmol/L (3.5-5.1); SODIUM 141 mmol/L (136-145)
[2020-08-13 07:22] LABS: CHOL/HDL RATIO 4.6 (3.0-3.6); PHOSPHORUS 3.7 MG/DL (2.3-4.7)
[2020-08-13 07:36] LABS: CREATINE KINASE MB 2.1 ng/mL (0-5.0)
[2020-08-13] MEDS ORDERED: CYCLOBENZAPRINE HCL 10 MG TAB PO SCH (09:00)
[2020-08-13] MEDS: DOCUSATE SODIUM 100 MG CAP PO SCH ×2 (09:55→17:30)
[2020-08-13] MEDS: CYCLOBENZAPRINE HCL 10 MG TAB PO SCH (09:56)
[2020-08-13] MEDS: FAMOTIDINE 20 MG TAB PO SCH ×2 (09:56→17:30)
[2020-08-13] MEDS: POTASSIUM CHLORIDE 20 MEQ TAB CR PO SCH ×2 (10:00→17:30)
[2020-08-13] MEDS: FUROSEMIDE INJ 10 MG/ML 4 ML VIAL IV SCH ×2 (10:00→21:59)
[2020-08-13] MEDS: TRAMADOL HCL 50 MG TAB PO PRN (10:07)
[2020-08-13] MEDS ORDERED: SODIUM CHLORIDE 0.9% 250ML 250 ML ONE (16:12)
[2020-08-13] MEDS: GABAPENTIN 100 MG CAP PO SCH (17:30)
[2020-08-13] MEDS: CEFTRIAXONE SOD 1 GM 50 ML IV SCH (17:30)
[2020-08-14] VITALS (8 sets, daily range): BP systolic 91–120; BP diastolic 54–61
[2020-08-14] MEDS: TRAMADOL HCL 50 MG TAB PO PRN (02:18)
[2020-08-14] MEDS: FAMOTIDINE 20 MG TAB PO SCH ×2 (08:30→16:24)
[2020-08-14] MEDS: FUROSEMIDE INJ 10 MG/ML 4 ML VIAL IV SCH ×2 (09:00→21:25)
[2020-08-14] MEDS ORDERED: FUROSEMIDE40 MG PO (09:30)
[2020-08-14] MEDS ORDERED: POTASSIUM CHLO10 ME1 PO (09:30)
[2020-08-14] MEDS ORDERED: CEFUROXIME500 MG PO (09:30)
[2020-08-14] MEDS: DOCUSATE SODIUM 100 MG CAP PO SCH ×2 (09:40→16:24)
[2020-08-14] MEDS: POTASSIUM CHLORIDE 20 MEQ TAB CR PO SCH ×2 (09:40→16:24)
[2020-08-14] MEDS ORDERED: GABAPENTIN100 MG PO (09:40)
[2020-08-14] MEDS: CYCLOBENZAPRINE HCL 10 MG TAB PO SCH (09:40)
[2020-08-14] MEDS: GABAPENTIN 100 MG CAP PO SCH ×2 (09:40→16:24)
[2020-08-14] MEDS ORDERED: ONDANSETRON HCL 4 MG ORAL DISINTEGRATING TAB PO PRN (12:45)
[2020-08-14] MEDS: CEFTRIAXONE SOD 1 GM 50 ML IV SCH (16:00)
[2020-08-15] VITALS: BP 106/57
[2020-08-15 04:00] VITALS: BP 113/51
[2020-08-15] MEDS: FAMOTIDINE 20 MG TAB PO SCH (07:30)
[2020-08-15 07:42] VITALS: BP 105/44
[2020-08-15 07:55] VITALS: BP 105/44
[2020-08-15] MEDS: CYCLOBENZAPRINE HCL 10 MG TAB PO SCH (08:34)
[2020-08-15] MEDS: DOCUSATE SODIUM 100 MG CAP PO SCH (08:34)
[2020-08-15] MEDS: POTASSIUM CHLORIDE 20 MEQ TAB CR PO SCH (08:37)
[2020-08-15] MEDS: GABAPENTIN 100 MG CAP PO SCH (08:37)
[2020-08-15] MEDS ORDERED: FUROSEMIDE INJ 10 MG/ML 4 ML VIAL IV SCH (09:00)
[2020-08-15] MEDS ORDERED: ALLOPURINOL 100 MG TAB PO SCH (09:00)
[2020-08-15] MEDS ORDERED: ALLOPURINOL100 MG PO (09:52)
== END 2020-08-15 11:53 | disposition home or self-care (01) | DRG 91 ==
LOC: ER 11:45 → ERHOLD 13:23 → MED/SURG2 19:49
PROVIDERS: ADMIT Internal Medicine; ATTEND Internal Medicine
DX: G25.3 Myoclonus (principal); I50.33 Acute on chronic diastolic (congestive) heart failure; I13.0 Hypertensive heart and chronic kidney disease with heart failure and stage 1 through stage 4 chronic kidney disease, or unspecified chronic kidney disease; N17.9 Acute kidney failure, unspecified; N39.0 Urinary tract infection, site not specified; Z68.42 Body mass index [BMI] 45.0-49.9, adult; T42.6X5A Adverse effect of other antiepileptic and sedative-hypnotic drugs, initial encounter; R15.9 Full incontinence of feces; E11.22 Type 2 diabetes mellitus with diabetic chronic kidney disease; N18.9 Chronic kidney disease, unspecified; Z79.4 Long term (current) use of insulin; E66.01 Morbid (severe) obesity due to excess calories; K21.9 Gastro-esophageal reflux disease without esophagitis; M47.899 Other spondylosis, site unspecified; R09.02 Hypoxemia; Z99.81 Dependence on supplemental oxygen; Z20.828 Contact with and (suspected) exposure to other viral communicable diseases; B96.20 Unspecified Escherichia coli [E. coli] as the cause of diseases classified elsewhere; J44.9 Chronic obstructive pulmonary disease, unspecified; Z74.09 Other reduced mobility
CPT/HCPCS: 36415; 70450; 70551; 71045; 80053; 80061; 81001; 82140; 82550; 82553; 83036; 83735; 83880; 84100; 84260; 84443; 84484; 84550; 85025; 85610; 85730; 87086; 87186; 93005; 93306; 93880; 99284; J0696; J1940; J7050; U0002